=== PATIENT | male | born 1980 | race Caucasian/White ===

== ENCOUNTER 2018-07-03 16:58 | Observation (INO) ==
[2018-07-03 17:26] LABS: Microscopic, Urine URINE MICROSCOPIC (MICROSCOPIC)
--- NOTE | 2018-07-03 17:30 | Emergency Department Note ---
ED Disposition Clinical Impression: Hepatitis A, Dehydration, Gastroenteritis Disposition: Admitted as Observation Condition on Discharge: Fair Instructions: DI for Acute Abdomen - Critical Care Critical Care Time: No Attestation: On , the high probability of a clinically significant, sudden or life th reatening deterioration of the following system(s) required my full and direct attention, intervention and personal management. The time I documented below is in addition to time spent performing reported procedures but includes the following listed in this critical care notation. Medical Decision Making - Medical Records Medical records reviewed: Yes: I reviewed the patient's medical records. - Artemoi Inquiry Pt receiving controlled substance: No Artemio was queried for this patient: No Vital Signs: 07/03/18 17:11 Temperature 98.7 F Temperature Source Oral Pulse Rate [Left Radial] 125 H Respiratory Rate 16 Blood Pressure [Right Radial Artery] 135/83 Blood Pressure Mean [Right Radial Artery] 100 Blood Pressure Source [Right Radial Artery] Automatic Cuff Blood Pressure Position [Right Radial Artery] Sitting 02 Sat by Pulse Oximetry 98 Oxygen Delivery Method Room Air - Lab Data Lab results reviewed: Yes: I reviewed the patient's lab results. Lab Results 07/03/18 16:55: Urine Color Karolyn, Urine Appearance Clear, Urine pH 6.5, Ur Specific [place] >= 1.030, Urine Protein 1+, Urine Glucose (UA) Trace, Urine Ketones Trace, Urine Blood Trace-i, Urine Nitrate Positive, Urine Bilirubin 3+ A , Urine Urobilinogen >=8.0, Ur Leukocyte Esterase Negative, Urine RBC None, Urine WBC 3-5, Ur Squamous Epith Cells Occasional, Calcium Oxalate Crystal 1+, Urine Bacteria Trace, Urine Mucus 4+ 07/03/18 17:17: WBC 6.6, RBC 5.43, Hgb 15.6, Hct 48.1, MCV 88.6, MCH 28.7, MCHC 32.4, RDW 13.3, Plt Count 152, MPV 8.1, Neut % (Auto) 57.2, Lymph % (Auto) 34.1, [place] % (Auto) 6.3, Eos % (Auto) 1.2, Baso % (Auto) 1.2, Neut # (Auto) 3.8, Lymph # (Auto) 2.3, [place] # (Auto) 0.4, Eos # (Auto) 0.1, Baso # (Auto) 0.1 07/03/18 17:17: Sodium 136, Potassium 4.1, Chloride 99, Carbon Dioxide 31, Anion Gap 10.1, BUN 13, Creatinine 0.99, Estimated Creat Clear 93, Estimated GFR 86, Est GFR ( Amer) 103, Glucose 162 H, Calcium 8.9, Total Bilirubin 5.3 H, Direct Bilirubin 4.5 H, Indirect Bilirubin 0.8, AST 2387 H*, ALT 2857 H*, Alkaline Phosphatase 335 H, Total Protein 7.9, Albumin 3.6, Globulin 4.3 H, Albumin/Globulin Ratio 0.8 L Result diagrams: 07/03/18 17:17 07/03/18 17:17 Orders (Tests/Meds): ED MEDICATIONS Generic Name Dose Route Start Last Admin Trade Name Freq PRN Reason Stop Dose Admin Lactated Ringer's 1,000 mls @ 999 mls/hr 07/03/18 17:30 07/03/18 17:25 Lactated Ringer's 1000 Ml Bag IV 07/03/18 18:30 999 mls/hr .[id number] [place]NOR Administration Discontinued Medications Generic Name Dose Route Start Last Admin Trade Name Freq PRN Reason Stop Dose Admin Ondansetron HCl 4 mg 07/03/18 17:20 07/03/18 17:24 Zofran 4mg/2ml Vial IV 07/03/18 17:21 4 mg ONCE ONE Administration ORDERS Category Date Time Status Hepatitis Panel (4) Stat Lab 07/03/18 17:17 Received Urinalysis and Microscopic Stat Lab 07/03/18 16:55 Ordered Medical Decision Narrative: Differential diagnosis includes cholecystitis, cholelithiasis hepatitis a cirrhosis and dehydration Patient will be hydrated and admitted discussed with the hospitalist on-call Dr. Valenzuela General Adult HPI - General Chief complaint: Abdominal Pain Stated complaint: Dark urine, vomiting, not sleeping Time Seen by Provider: 07/03/18 17:15 Mode of Arrival: Ambulatory Limitations: No Limitations Description of Symptoms (Recalled from ER Triage Doc. by RN): to ed per pvt car with c/o vomiting, unable to sleep x 3-4 days pt denies any fever,abd pain. pt with yellow sclera. - History of Present Illness HPI narrative: Patient complains about a week's worth of tea colored urine difficulty sleeping nausea and vomiting and diarrhea C8 in a restaurant that was recently closed down that was known to have hepatitis A denies alcohol abuse or liver disease - Related Data Allergies Allergy/AdvReac Type Severity Reaction Status Date / Time No Known Allergies Allergy Unverified 05/22/17 14:39 [facility] History - Hepatitis A Screen Drug use history?: Yes High risk sexual behaviors?: No History of sexually transmitted infection?: No Currently employed?: No Childcare worker?: No Do you have indoor plumbing?: Yes Do you have electricity?: Yes Attestation statement:: This patient has been screened for Hepatitis A risk factors. I have reviewed the patient's past medical history: Yes - Social History Alcohol Intake: never Occupational Status: other - Psychiatric History Expresses thoughts of harming self/others: None Suicide Plan Description: No Plan ROS Obtained: Yes All systems reviewed & no additional complaints Insomnia nausea dehydration Physical Exam - General General appearance: alert, in no apparent distress Comment: Positive scleral icterus - Head Head exam: atraumatic, normocephalic, normal inspection - Eye Eye exam: Present: normal appearance, PERRL, EOMI, scleral icterus, jaundice - ENT ENT exam: Present: normal exam, normal oropharynx, mucous membranes moist, TM's normal bilaterally, normal external ear exam - Neck Neck exam: Present: normal inspection, full ROM, trachea midline. Absent: meningismus, lymphadenopathy - Chest Chest inspection: Present: normal inspection, symmetric chest wall rise. Absent: tenderness - Respiratory Respiratory exam: Present: normal lung sounds bilaterally. Absent: respiratory distress - Cardiovascular Cardiovascular exam: Present: regular rate, normal rhythm. Absent: JVD - Abdominal Exam Abdominal exam: Present: soft, normal bowel sounds. Absent: distention, tenderness, guarding - Extremities Exam Extremities exam: Present: normal inspection, full ROM, normal capillary refill. Absent: calf tenderness - Back Exam Back exam: Present: normal inspection. Absent: tenderness - Neurological Exam Neurological exam: Present: alert, oriented X3 - Psychiatric Psychiatric exam: Present: normal affect, normal mood - Skin Skin exam: Present: warm, dry, intact, normal color - Lymphatic Lymphatic Findings: no adenopathy
[2018-07-03 17:32] LABS: Basophils # 0.1 K/mm3 (0-0.2); Basophils % 1.2 % (0.1-2.0); Eosinophils # 0.1 K/mm3 (0.0-0.4); Eosinophils % 1.2 % (0.1-12.0); Hematocrit 48.1 % (42.0-52.0); Hemoglobin 15.6 g/dL (14.1-18.0); Lymphocytes # 2.3 K/mm3 (0.7-4.5); Lymphocytes % 34.1 % (10-50); Mean Corpuscular HGB Conc 32.4 g/dL (31.8-35.4); Mean Corpuscular Hemoglobin 28.7 pg (27.0-31.2); Mean Corpuscular Volume 88.6 fl (80-94); Mean Platelet Volume 8.1 fl (7.4-10.4); Monocytes # 0.4 K/mm3 (0.1-1.0); Monocytes % 6.3 % (1.7-9.3); Neutrophils # 3.8 K/mm3 (1.8-7.8); Neutrophils % 57.2 % (37.0-80.0); Platelet Count 152 K/mm3 (142-424); Red Blood Count 5.43 M/mm3 (4.60-6.20); Red Cell Distribution Width 13.3 % (11.5-17.5); White Blood Count 6.6 K/mm3 (4.8-10.8)
[2018-07-03 17:50] LABS: Albumin Level 3.6 gm/dL (3.4-5.0); Albumin/Globulin Ratio 0.8 (1.1-1.8); Anion Gap 10.1 mEq/L (5-15); Bilirubin,Direct 4.5 mg/dL (0.0-0.2); Bilirubin,Indirect 0.8 mg/dL (0.0-0.9); Bilirubin,Total 5.3 mg/dL (0.2-1.0); Calcium 8.9 mg/dL (8.5-10.1); Globulin 4.3 gm/dl (1.3-3.2); Potassium 4.1 mmoL/L (3.5-5.1); Total Protein,Serum 7.9 gm/dL (6.4-8.2)
[2018-07-03 17:59] LABS: Appearance,Urine CLEAR (Clear); Blood, Urine TRACE-I (Negative); Color,Urine AMBER (Yellow); Glucose,Urine (UA) TRACE (Negative); Ketones,Urine TRACE (Negative); Leukocyte Esterase,Urine Negative (Negative); PH,Urine 6.5 (5.0-8.5); Protein,Urine 1+ (Negative); Specific Gravity, Urine >= 1.030 (1.005-1.030); Urobilinogen,Urine >=8.0 EU/dl (0.2)
[2018-07-03 18:03] LABS: Bacteria,Urine Trace /lpf; Bilirubin,Urine 3+ (Negative); Squamous Epithelial Cell,Urine Occasional #/hpf (0-5)
[2018-07-03 18:04] LABS: Calcium Oxalate Crystals,Urine 1+ /lpf; Mucus,Urine 4+ /lpf
--- NOTE | 2018-07-03 21:00 | Progress Note ---
Internal Medicine - PN: Subj *Date: 07/03/18 *Time: 20:56 Interval history: This 37-year-old white male has been admitted with acute hepatitis. He has been generally healthy. He has felt poorly for the past week or so. 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 He came to the emergency room this evening for evaluation. He has no current regular physician. He does not drink alcohol. He was a smoker in the past. He denies any illicit drug use. He did eat at a local restaurant that has closed having an employee that was positive for hepatitis A. Exam Vital signs and Labs for Last 24 Hours: Temp Pulse Resp BP Pulse Ox 98.5 F 85 15 141/74 H 98 07/03/18 19:49 07/03/18 19:49 07/03/18 19:49 07/03/18 19:49 07/03/18 17:11 Laboratory Results - last 24 hr 07/03/18 16:55: Urine Color Karolyn, Urine Appearance Clear, Urine pH 6.5, Ur Specific [place] >= 1.030, Urine Protein 1+, Urine Glucose (UA) Trace, Urine Ketones Trace, Urine Blood Trace-i, Urine Nitrate Positive, Urine Bilirubin 3+ A , Urine Urobilinogen >=8.0, Ur Leukocyte Esterase Negative, Urine RBC None, Urine WBC 3-5, Ur Squamous Epith Cells Occasional, Calcium Oxalate Crystal 1+, Urine Bacteria Trace, Urine Mucus 4+ 07/03/18 17:17: WBC 6.6, RBC 5.43, Hgb 15.6, Hct 48.1, MCV 88.6, MCH 28.7, MCHC 32.4, RDW 13.3, Plt Count 152, MPV 8.1, Neut % (Auto) 57.2, Lymph % (Auto) 34.1, [place] % (Auto) 6.3, Eos % (Auto) 1.2, Baso % (Auto) 1.2, Neut # (Auto) 3.8, Lymph # (Auto) 2.3, [place] # (Auto) 0.4, Eos # (Auto) 0.1, Baso # (Auto) 0.1 07/03/18 17:17: Sodium 136, Potassium 4.1, Chloride 99, Carbon Dioxide 31, Anion Gap 10.1, BUN 13, Creatinine 0.99, Estimated Creat Clear 93, Estimated GFR 86, Est GFR ( Amer) 103, Glucose 162 H, Calcium 8.9, Total Bilirubin 5.3 H, Direct Bilirubin 4.5 H, Indirect Bilirubin 0.8, AST 2387 H*, ALT 2857 H*, Alkaline Phosphatase 335 H, Total Protein 7.9, Albumin 3.6, Globulin 4.3 H, Al bumin/Globulin Ratio 0.8 L Laboratory Tests 07/03/18 07/03/18 17:17 17:17 WBC 6.6 Hgb 15.6 Hct 48.1 Glucose 162 H Total Bilirubin 5.3 H Direct Bilirubin 4.5 H AST 2387 H* ALT 2857 H* I & O for Last 24 hours: Intake & Output 07/01/18 07/02/18 07/03/18 07/04/18 11:59 11:59 11:59 11:59 Intake Total 1000 / 1000 Balance 1000 / 1000 Weight 140 lb - Constitutional no acute distress - *Routine HEENT Exam Head: Present: normocephalic Eye: Present: conjunctival icterus ENT: Present: mucous membranes moist - *Routine Neck Exam Present: supple - Routine Chest/Breast/Axilla Exam Comments: Normal configuration - *Routine Respiratory Exam Present: CTA bilaterally - *Routine Cardiovascular Exam Present: RRR - *Routine Abdominal Exam Present: soft. Absent: tenderness Comments: There may be some liver enlargement with the border extending below the ribs on the right. He is nontender - *Routine Rectal Exam Comments: Not done - *Routine Extremities Exam Absent: edema Assessment and Plan (1) Dehydration Current visit: Yes Status: Acute Category: Medical Code(s): E86.0 - Dehydration (2) Gastroenteritis Current visit: Yes Status: Acute Category: Medical Code(s): K52.9 - Noninfective gastroenteritis and colitis, unspecified (3) Hepatitis A Current visit: Yes Status: Acute Category: Medical Code(s): B15.9 - H epatitis A without hepatic coma - Assessment and plan all Dx Assessment and Plan for all problems:: See orders. Gastroenterology consult.
[2018-07-04 06:38] LABS: Albumin Level 2.8 gm/dL (3.4-5.0); Albumin/Globulin Ratio 0.8 (1.1-1.8); Anion Gap 11.7 mEq/L (5-15); Bilirubin,Total 4.8 mg/dL (0.2-1.0); Calcium 8.4 mg/dL (8.5-10.1); Globulin 3.5 gm/dl (1.3-3.2); Potassium 3.7 mmoL/L (3.5-5.1); Total Protein,Serum 6.3 gm/dL (6.4-8.2)
--- NOTE | 2018-07-04 07:41 | Pharmacy Consult Notes ---
[facility] Pharmacy VTE Monitoring - Patient Demographics Admission date: 07/03/18 Report Date: 07/04/18 Time: 07:41 Allergies/Adverse Reactions: Patient Allergies No Known Allergies Allergy (Unverified 05/22/17 14:39) Height: 1.78 m Weight: 69.455 kg Patient Problems: Current Active Problems Hepatitis A (Acute) Dehydration (Acute) Gastroenteritis (Acute) - VTE Risk Labs: VTE Related Lab Results Hgb 15.6 g/dL (14.1-18.0) 07/03/18 17:17 Hct 48.1 % (42.0-52.0) 07/03/18 17:17 Plt Count 152 K/mm3 (142-424) 07/03/18 17:17 BUN 9 mg/dL (7-18) D 07/04/18 05:56 Creatinine 0.90 mg/dL (0.70-1.30) 07/04/18 05:56 Estimated Creat Clear 111 mL/min (50-200) 07/04/18 05:56 Was VTE Risk Assessment Performed: Yes VTE Score: 0 VTE Risk Level: Very Low Risk - Prophylaxis VTE Prophylaxis Ordered?: Yes Types of VTE Prophylaxis: TEDS Knee High Location of Applied Device: Bilateral Lower Extremeties - VTE Diagnosis Confirmed Treatment or plan recommended: Continue Current Treatment
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
--- NOTE | 2018-07-05 08:49 | Progress Note ---
Internal Medicine - PN: Subj *Date: 07/05/18 *Time: 08:46 Interval history: Patient states he is feeling better today. He is tolerating a diet. He had no further vomiting and denies any abdominal pain. His urine is starting to lighten up. Exam Vital signs and Labs for Last 24 Hours: Temp Pulse Resp BP Pulse Ox 98.1 F 94 H 16 125/80 96 07/05/18 04:00 07/05/18 04:00 07/05/18 04:00 07/05/18 04:00 07/05/18 04:00 I & O for Last 24 hours: Intake & Output 07/02/18 07/03/18 07/04/18 07/05/18 11:59 11:59 11:59 11:59 Intake Total 1946 3080 / 3080 Balance 1946 3080 / 3080 Weight 153 lb 1.953 oz 157 lb 7 oz - Constitutional no acute distress - *Routine Respiratory Exam Present: CTA bilaterally - *Routine Cardiovascular Exam Present: RRR - *Routine Abdominal Exam Present: soft, normoactive bowel sounds. Absent: tenderness - *Routine Extremities Exam Absent: cyanosis, clubbing, edema - *Routine Skin Exam Present: jaundice Assessment and Plan (1) Dehydration Current visit: Yes Status: Acute Category: Medical Code(s): E86.0 - Dehydration (2) Gastroenteritis Current visit: Yes Status: Acute Category: Medical Code(s): K52.9 - Noninfective gastroenteritis and colitis, unspecified (3) Hepatitis A Current visit: Yes Status: Acute Category: Medical Code(s): B15.9 - Hepatitis A without hepatic coma - Assessment and plan all Dx Assessment and Plan for all problems:: Symptoms are improving and LFT's are improving. The patient has been seen by Dr. Rodríguez. Awaiting consult note.
[2018-07-05 09:29] LABS: Hepatitis B Core Antibody IgM Negative (Negative); Hepatitis B Surface Antigen Negative (Negative)
[2018-07-05 10:24] LABS: Albumin Level 2.7 gm/dL (3.4-5.0); Albumin/Globulin Ratio 0.8 (1.1-1.8); Anion Gap 9.5 mEq/L (5-15); Bilirubin,Total 4.9 mg/dL (0.2-1.0); Calcium 8.2 mg/dL (8.5-10.1); Globulin 3.5 gm/dl (1.3-3.2); Potassium 3.5 mmoL/L (3.5-5.1); Total Protein,Serum 6.2 gm/dL (6.4-8.2)
[2018-07-05 12:32] LABS: Hepatitis C Antibody <0.1 s/co ratio (0.0-0.9)
--- NOTE | 2018-07-05 13:06 | Procedure Note ---
[facility] Procedure Note Procedure Note:: Gastroenterology Consultation Date of Service-July 05, 2018 History of Present Illness: Mr. Mcintosh is a 37-year-old gentleman who presents with nausea, vomiting and diarrhea. On admission, his ALT level was 2857 and alkaline phosphatase 335. He had darkened urine and some acholic stools. The patient reports eating at a restaurant with an employee that had hepatitis A. The patient's hepatitis A IgM antibody returned positive. He reports no use of alcohol. He has been on methadone for 8 years but reports no parenteral drug use. The patient's ALT today was 1570 with a total bilirubin of 4.9. He reports no abdominal pain. Past Medical History: 1. History of opiates Past Surgical History: 1. Prior chest tube for pneumothorax Medications: 1. Methadone ALLERGIES: No known drug allergy Social History: Former tobacco, no alcohol. 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 Hepatitis A. The patient has improved transaminases and declining total bilirubin. At this point he can be sent home. I would recommend avoidance of NSAIDs and alcohol. After the onset of jaundice, unlikely to be infectious/transmissible. Symptomatic care only and report to health department. I would recommend vaccination for hepatitis B.
--- NOTE | 2018-07-09 15:18 | Discharge Summary ---
General - General Admission date:: 07/03/18 Discharge date: 07/05/18 HPI HPI: Mr. Mcintosh is a 37-year-old white male who was admitted with acute hepatitis. He has been generally healthy. He has not medical problems but does take methadone weekly from a methadone clinic in [facility]. He has been taking this for 8 years. He has felt poorly for the past week or so. 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 He began vomiting and was unable to keep down solids or liquids. He came to the emergency room for evaluation. He has no current regular physician. He does not drink alcohol. He was a smoker in the past. He denies any illicit drug use. He did eat at a local restaurant that has closed having an employee that was positive for hepatitis A. Hospital Course Hospital Course: The patient's initial abdominal CT showed nothing acute. There was nonobstructive left nephrolithiasis and a slightly increased density of the gallbladder. He did have a gallbladder ultrasound which showed gallbladder wall thickening but no stones. His liver enzymes were markedly elevated and hepatitis profile was ordered, however it was felt he did have hepatitis A as he had been exposed. The patient was on methadone daily and his dose was reordered. Dr. Rodríguez was consulted. The patient's hepatitis A IgM antibody did return positive. His transaminases improved and his bilirubin was declining. Dr. Rodríguez saw the patient and felt that he could be sent home, but did recommend avoidance of NSAIDs and alcohol. He felt after the onset of the jaundice, the patient was unlikely to be infectious or transmissible. He recommended symptomatic care only as well as vaccination for hepatitis B. The patient was tolerating a diet and was stable to be discharged home. He will f/u in the office of A in 10 days. Objective Vital signs: Temp Pulse Resp BP Pulse Ox 98.4 F 100 H 18 124/82 100 07/05/18 16:00 07/05/18 16:00 07/05/18 16:00 07/05/18 16:07/05/18 16:00 Narrative: - Constitutional no acute distress - *Routine HEENT Exam Head: Present: normocephalic Eye: Present: EOMI, PERRL ENT: Present: mucous membranes dry - *Routine Neck Exam Present: supple. Absent: lymphadenopathy - *Routine Respiratory Exam Present: CTA bilaterally - *Routine Cardiovascular Exam Present: RRR - *Routine Abdominal Exam Present: soft, normoactive bowel sounds. Absent: tenderness - *Routine Extremities Exam Absent: cyanosis, clubbing, edema - *Routine Skin Exam Present: warm. Absent: rash - *Routine Neurological Exam Present: alert, oriented X3 DS: Diagnosis - Discharge Diagnosis (1) Dehydration Status: Acute (2) Gastroenteritis Status: Acute (3) Hepatitis A Status: Acute Discharge Plan - Patient Discharge Instructions ACTIVITY: Limited activity DIET: low fat, low cholesterol Additional Instructions: FOLLOW UP WITH DR. VALENZUELA ON JULY 15, 2018 AT 9:30AM Patient Instructions: Hepatitis A Virus, DI for Dehydration -- Adult - Follow up Plan Follow up with: Catalino Valenzuela MD [Staff Physician] - 10 days Disposition: Home, Self-Senior Care Medications: Home Medications Medication Instructions Recorded Confirmed Type Methadone HCl [Methadose] 105 mg PO DAILY 07/04/18 07/04/18 History Prescriptions/Medication Reconciliation: Continue Methadone HCl [Methadose] 105 mg PO DAILY
== END 2018-07-05 17:35 | disposition home or self-care (01) ==
LOC: ER 16:58 → 2ND 16:58 → INTOOBSV 20:06 → OBSVTOIN 20:06 → 2ND 20:07
PROVIDERS: ADMIT Family Medicine; ATTEND Family Medicine
DX: K52.9 Noninfective gastroenteritis and colitis, unspecified; N20.0 Calculus of kidney; E86.0 Dehydration; K82.8 Other specified diseases of gallbladder; R10.9 Unspecified abdominal pain; B15.9 Hepatitis A without hepatic coma; Z79.891 Long term (current) use of opiate analgesic; R17 Unspecified jaundice
CPT/HCPCS: 36415; 74176; 76705; 80053; 80074; 81001; 82248; 85025; 90746; 96365; 96375; 99284; G0378; J2405